=== PATIENT | female | born 1975 | race Hispanic/Latino ===

== ENCOUNTER → 2019-09-16 | Outpatient (CLI) | payer OTHER | END | disposition home or self-care (01) | LOC: RAH 09:49 | PROVIDERS: ATTEND Internal Medicine Hematology & Oncology | DX: R10.9 Unspecified abdominal pain (principal); D50.9 Iron deficiency anemia, unspecified ==

== ENCOUNTER → 2023-02-12 | Outpatient (CLI) | payer BC | END | disposition home or self-care (01) | LOC: RAH 09:15 | PROVIDERS: ATTEND Internal Medicine Gastroenterology | DX: K44.9 Diaphragmatic hernia without obstruction or gangrene (principal); K21.9 Gastro-esophageal reflux disease without esophagitis | CPT/HCPCS: 74240 ==